=== PATIENT | female | born 2000 | race Caucasian/White ===

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

== ENCOUNTER 2019-10-28 20:21 | Emergency (ER) | payer OTHER ==
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
--- NOTE | 2019-10-28 21:07 | XRAY Report ---
PROCEDURE: Nasal Bones INDICATIONS: Nose injury TECHNIQUE: 3 views of the nasal bones acquired. COMPARISON: None FINDINGS: Bones: Mildly displaced nasal bone fractures bilaterally dislocations. Nasal septum is midline. Soft tissues: No suspicious soft tissue calcifications. IMPRESSION: Mildly displaced bilateral nasal bone fractures. Reviewed by: Erickson Vuong MD on 10/28/2019 9:06 PM PDT Approved by: Erickson Vuong MD on 10/28/2019 9:06 PM PDT Station ID: [id number]
[2019-10-28] MEDS ORDERED: HYDROcod/ACET 5/325 Prepack 4 PO STA (21:23)
[2019-10-28 21:30] VITALS: BP 116/66
== END 2019-10-28 21:37 | disposition home or self-care (01) ==
LOC: ED 20:21
DX: S02.2XXA Fracture of nasal bones, initial encounter for closed fracture (principal); W50.0XXA Accidental hit or strike by another person, initial encounter; Y93.44 Activity, trampolining
CPT/HCPCS: 70160; 99283; 99284

== ENCOUNTER 2019-11-07 11:56 | Day surgery (SDC) | payer OTHER ==
[~2019-11-07 11:56] MED LIST: CEFAZOLIN SODIUM IN 0.9 % NACL 2 GM/100 ML BAG IV ONE
[2019-11-07] MEDS ORDERED: PROPOFOL 200 MG/20 ML VIAL IVP ONE (11:57)
[2019-11-07] MEDS ORDERED: LIDOCAINE-MPF 2% 5 ML VIAL IM ONE (11:57)
[2019-11-07] MEDS ORDERED: DEXAMETHASONE 4 MG/ML VIAL IVP ONE (11:57)
[2019-11-07] MEDS ORDERED: fentaNYL 100 MCG/2 ML VIAL IVP ONE (11:57)
[2019-11-07] MEDS ORDERED: MIDAZOLAM 2 MG/2 ML VIAL IVP ONE (11:57)
[2019-11-07] MEDS ORDERED: KETOROLAC 30 MG/ML VIAL IVP ONE (11:57)
[2019-11-07 12:16] LABS: HCG UR QUAL NEGATIVE
[2019-11-07] MEDS ORDERED: LACTATED RINGERS 1,000 ML IV ONE ×2 (12:29→14:10)
[2019-11-07] MEDS ORDERED: BACITRACIN ZINC OINT 1 PACKET TOP ONE (12:43)
[2019-11-07] MEDS ORDERED: LIDOCAINE 1%-EPI 1:100000 20 ML MDV ONE (12:43)
[2019-11-07] MEDS ORDERED: OXYMETAZOLINE HCL 100 SPRAYS BOTTLE NAS ONE (12:44)
--- NOTE | 2019-11-07 13:05 | ANESTHESIA ---
Pre-Anesthesia VS, & Labs - Diagnosis fractured nose - Procedure closed reduction basal fracture Vital Signs: Temp Pulse Resp BP Pulse Ox 37 C 85 16 127/77 100 11/07/19 12:07 11/07/19 12:07 11/07/19 12:07 11/07/19 12:07 11/07/19 12:07 Height: 5 ft 4 in Weight (kg): 74.2 kg Body Mass Index: 28.0 BMI Classification: Overweight - NPO >8 hours - Is Patient ?: Yes - Lab Results Lab results reviewed: Yes Home Medications and Allergies Home Medications: Ambulatory Orders No Known Home Medications 11/07/19 No Known Home Medications 11/07/19 Allergies/Adverse Reactions: Allergies Allergy/AdvReac Type Severity Reaction Status Date / Time No Known Drug Allergies Allergy Verified 10/28/19 20:23 Anes History & Medical History - Anesthetic History Anesthesia Complications: reports: No previous complications Family history of Anesthesia Complications: Denies Family history of Malignant Hyperthermia: Denies - Medical History Cardiovascular: reports: None Pulmonary: reports: None Gastrointestinal: reports: None Urinary: reports: None Musculoskeletal: reports: None Endocrine/Autoimmune: reports: None Skin: reports: None Smoking Status: Never smoker Exam General: Alert, Oriented x3, Cooperative Dental: WNL Mouth Openin Fingerbreadth Neck Mobility: Normal Mallampati classification: II Respiratory: Lungs clear, Normal breath sounds, No respiratory distress Cardiovascular: Regular rate Neurological: Normal speech Mental/Cognitive Status: Alert/Oriented X3, Normal for patient Cognitive Status: Within normal limits Plan Anesthesia Type: General Consent for Procedure(s) Verified and Reviewed: Yes Code Status: Attempt Resuscitation ASA classification: 1-Healthy patient Is this case an emergency?: No
[2019-11-07] MEDS ORDERED: HYDROmorphone 0.5 MG/0.5 ML SYRINGE IVP PRN (13:06)
[2019-11-07] MEDS ORDERED: METOCLOPRAMIDE 10 MG/2 ML VIAL IVP PRN (13:06)
[2019-11-07] MEDS ORDERED: ePHEDrine 50 MG/ML VIAL IVP PRN (13:06)
[2019-11-07] MEDS ORDERED: ATROPINE ABBOJECT 1 MG/10 ML SYRINGE IVP PRN (13:06)
[2019-11-07] MEDS ORDERED: fentaNYL 100 MCG/2 ML VIAL IVP PRN (13:06)
[2019-11-07] MEDS ORDERED: NALOXONE 0.4 MG/ML VIAL IVP PRN (13:06)
[2019-11-07] MEDS ORDERED: MORPHINE 2 MG/ML CARPUJECT IVP PRN (13:06)
[2019-11-07] MEDS ORDERED: ONDANSETRON 4 MG/2 ML VIAL IVP PRN (13:06)
[2019-11-07] MEDS ORDERED: BACITRACIN ZINC OINT 14 GM TOP ONE (13:14)
[2019-11-07] MEDS ORDERED: LIDOCAINE 1%-EPI 1:100000 30 ML MDV SUBQ ONE ×2 (13:15)
[2019-11-07] MEDS ORDERED: LACTATED RINGERS 1,000 ML IV SCH (14:00)
[2019-11-07] MEDS ORDERED: oxyCODONE 5 MG TABLET PO ONE (15:40)
[2019-11-07] MEDS ORDERED: oxyCODONE 5 MG TABLET ONE (15:43)
--- NOTE | 2019-11-07 15:49 | ANESTHESIA POST OP EVALUATION ---
Anesthesia Post Eval - Post Anesthesia Eval Vitals: Last Vital Signs Temp 37.2 C 11/07/19 15:00 Pulse 72 11/07/19 15:00 Resp 16 11/07/19 15:00 BP 113/71 11/07/19 15:00 Pulse Ox 97 11/07/19 15:00 CV Function Including HR & BP: positive: Stable Pain Control: positive: Satisfactory Nausea & Vomiting: positive: Negative Mental Status: positive: Baseline Respiratory Status: Airway Patent Hydration Status: Satisfactory
[2019-11-07 16:00] VITALS: BP 119/77
--- NOTE | 2019-11-08 10:48 | OPERATIVE REPORT ---
DATE OF SERVICE: 11/07/2019 Physician: Thomas Hollis DDS PREOPERATIVE DIAGNOSIS: Fracture of the bilateral nasal bones and septum. POSTOPERATIVE DIAGNOSIS: Fracture of the bilateral nasal bones and septum. PROCEDURE PERFORMED: Closed reduction of the bilateral nasal bones and septum with placement of internal nasal packing. PRIMARY SURGEON: Thomas Hollis DDS. SALES DESIGNER: Ignacio Avitia. ANESTHESIA TYPE: General anesthesia with a laryngeal mask airway. SPECIAL EDUCATION TEACHING ASSISTANT: Niecy. COMPLICATIONS: None. DRAINS, PACKS, CATHETERS: Merocel splints were packed into the bilateral nares. A single piece of 1/4-inch iodoform gauze was packed in the bilateral superior nares. A Lenoir splint was placed on the dorsum of the nose. ESTIMATED BLOOD LOSS: Less than 10 mL INDICATIONS FOR PROCEDURE: Patient is a 19-year-old female who was wrestling and struck her nose. She was evaluated in the emergency room and found to have a severely displaced fracture of the right nasal bones, as well as a nondisplaced fracture of the left nasal bone and septum. She was referred to my clinic, where clinical and radiographic examination were consistent with the above findings. She desired to have the nose fixed in order to avoid a cosmetic deformity and also because she reported difficulty breathing through the right side of her nose. The risks, benefits, and alternatives of this plan of a closed reduction of the bilateral nasal bones and septum was discussed with the patient, including pain, swelling, bleeding, infection, nerve injury, need for further surgeries, difficulty breathing, cosmetic deformity. Adequate time was given to answer all questions, and informed consent was obtained. DESCRIPTION OF PROCEDURE: The patient was brought to the main operating room and placed in a supine position on the operating table. General anesthesia was induced by the anesthesia team and the airway secured with a laryngeal mask airway. All pressure points were padded and checked, and the patient was prepped and draped in the standard sterile fashion for closed reduction of the nasal bones. The eyes were protected with Tegaderm. The throat pack was placed. Local anesthesia was achieved with 2 mL of 1% lidocaine with 1:100,000 epinephrine. Attention was directed to the nose. A Boies elevator was first used, measuring the length of the nose and making sure not to pass this area to avoid any damage to the respiratory mucosa and especially to the cribriform plate. Prior to placing the Boies elevator intranasally, 2 sprays of Afrin were sprayed into each naris and allowed to soak for 5 minutes. The Boies elevator was used introduced intranasally on the right and the nasal fracture, although now over 7 days old, was reduced very easily. It was easily felt to click back into place using the external palpation. The Boies elevator was then introduced into the left side of the nose, and upwards and lateral force was applied as per standard for reduction of nasal bone fracture. The Boies elevator was rocked gently [id number] in the right naris and in the left naris to ensure that the nasal septum had stayed midline and not been displaced during the reduction of the nasal bones. A 1/4-inch iodoform gauze was then soaked in bacitracin and packed into the superior compartment of the nose, first on the right and then on the left, this in order to give with outward pressure on the nasal bones and maintain the symmetric shape of the nose. A Merocel splint with a tube was then placed into the inferior aspect of the bilateral nose, one on the left and one on the right. They were tied anteriorly across the columella. The patient's nose was dabbed; it did not bleed severely during the whole procedure. The throat was suctioned, the throat pack was removed. The face was cleansed. Prior to emergence from anesthesia, the dorsum of the nose was prepped with Mastisol, and a Lenoir splint was fashioned to the dorsum of the nose in the usual fashion. After this was completed, care of the patient was returned to the anesthesia team for uneventful emergence from anesthesia. The patient was transferred to the PACU, where she woke up and was stable. TD: 11/07/2019 20:56 SILVIA
== END 2019-11-07 11:57 | disposition home or self-care (01) ==
LOC: SDS 11:56
PROVIDERS: ATTEND Dentist Oral and Maxillofacial Surgery
PROC: 0NSBXZZ Reposition Nasal Bone, External Approach (ICD-10-PCS; principal; 2019-11-07 13:00)
DX: S02.2XXA Fracture of nasal bones, initial encounter for closed fracture (principal)
CPT/HCPCS: 21320; 81025; A9270; J0690; J7120

== ENCOUNTER 2021-06-01 08:12 | Emergency (ER) | payer SELFPAY ==
--- NOTE | 2021-06-01 09:31 | ED Physician Documentation ---
PD HPI HEENT - Stated complaint Stated Complaint: TOOTH PX - Chief complaint Chief Complaint: Heent - History obtained from History obtained from: Patient, Family - History of Present Illness Timing - onset: How many days ago (3) Timing - duration: Days (3) Timing - details: Gradual onset, Still present Location: Tooth Improves: Medication Associated symptoms: Swollen nodes, Facial swelling. No: Fever, Congestion, Rhinorrhea, Trismus, Unable to swallow, Headache, Cough Similar symptoms before: Has not had sx before Recently seen: Not recently seen - Additional information Additional information: Previously well 20-year-old Fariba Prajapati has developed a pain in her right lower jaw over the past 3 days. She has not developed a fever but she has not been able to sleep. She still has her wisdom teeth in place. She feels there is some swelling in the right side of her neck associated with this. Review of Systems Constitutional: denies: Fever Eyes: denies: Decreased vision Ears: denies: Ear pain Nose: denies: Rhinorrhea / runny nose, Congestion Throat: reports: Dental pain / toothache. denies: Sore throat Cardiac: denies: Chest pain / pressure, Palpitations Respiratory: denies: Dyspnea, Cough GI: denies: Nausea, Vomiting, Diarrhea PD PAST MEDICAL HISTORY - Past Medical History Past Medical History: No Cardiovascular: None Respiratory: None Endocrine/Autoimmune: None GI: None : None HEENT: None Psych: None Musculoskeletal: None Derm: None - Past Surgical History Past Surgical History: No - Present Medications Home Medications: Ambulatory Orders Medication Instructions Recorded Confirmed Amoxicillin 500 mg PO TID #21 cap 06/01/21 HYDROcod/ACETAM 5/325 [[place]on 5/325] 1 - 2 tablet PO Q6H PRN #14 tablet 06/01/21 - Allergies Allergies/Adverse Reactions: Allergies Allergy/AdvReac Type Severity Reaction Status Date / Time No Known Drug Allergies Allergy Verified 06/01/21 08:19 - Social History Does the pt smoke?: No Smoking Status: Never smoker Does the pt drink ETOH?: No Does the pt have substance abuse?: No - Immunizations Immunizations are current?: Yes - POLST Patient has POLST: No PD ED PE NORMAL - Vitals Vital signs reviewed: Yes (Hypertensive) - General General: Alert and oriented X 3, No acute distress, Well developed/nourished - HEENT HEENT: Atraumatic, PERRL, EOMI, Other (The right lower wisdom tooth is tender to palpation there is no noted dental decay. There is swelling to the gingival mucosa on the right wisdom tooth. This area is tender.) - Neck Neck: Supple, no meningeal sign, No bony TTP, Other (Tender submandibular adenopathy on the right side.) - Respiratory Respiratory: No respiratory distress - Derm Derm: Normal color, Warm and dry, No rash - Extremities Extremities: No deformity, No edema - Neuro Neuro: Alert and oriented X 3, bar roller 2-12 intact, No motor deficit, No sensory deficit Eye Opening: Spontaneous Motor: Obeys Commands Verbal: Oriented GCS Score: 15 - Psych Psych: Normal mood, Normal affect Results - Vitals Vitals: Vital Signs - 24 hr 06/01/21 08:18 Temperature 36.4 C L Heart Rate 62 Respiratory 16 Rate Blood Pressure 142/90 H O2 Saturation 99 Oxygen O2 Source Room air PD MEDICAL DECISION MAKING - ED course Complexity details: considered differential, d/w patient, d/w family ED course: 20-year-old female with what appears to be a infection to the right lower wisdom tooth. We will place patient on a course of amoxicillin and have her follow-up with oral maxillofacial surgery. She has not been able to sleep and we will provide some pain medication for temporary use. Departure - Departure Disposition: 01 Home, Self Care Clinical Impression: Dental infection Condition: Stable Instructions: ED Tooth Pain Follow-Up: [facility] [Physician No Access] - Keysha Robertson PA-C [Provider Admit Priv/Credential] - Prescriptions: Amoxicillin 500 mg PO TID #21 cap HYDROcod/ACETAM 5/325 [[place]on 5/325] 1 - 2 tablet PO Q6H PRN #14 tablet PRN Reason: Pain Comments: Fariba today it looks like you have an infection around the right lower molar. We have provided some amoxicillin and some pain medication and these have been E scribed to [facility] in [place]. I have provided a follow-up number for the oral maxillofacial surgeon in [place]. You may need to have your wisdom teeth extracted.
[2021-06-01 09:43] VITALS: BP 121/73
== END 2021-06-01 09:41 | disposition home or self-care (01) ==
LOC: ED 08:12
DX: K04.7 Periapical abscess without sinus (principal)
CPT/HCPCS: 99282